=== PATIENT | female | born 1955 | race Caucasian/White ===

== ENCOUNTER 2023-08-08 13:10 | Emergency (ER) | payer BC, SELFPAY ==
[2023-08-08 13:14] VITALS: BP 113/73; PULSE 75; TEMP 36.4; O2SAT 95
--- NOTE | 2023-08-08 13:25 | ED_ITS ---
HPI - Nausea/Vomiting/Diarrhea General Chief complaint: Nausea/Vomiting/Diarrhea Stated complaint: NAUSEA/DIARRHEA Time Seen by Provider: 08/08/23 13:18 Source: patient Mode of arrival: walk-in History of Present Illness HPI Narrative: 68-year-old female presents for a 1 week history of nausea and diarrhea. She has had no travel or recent hospitalizations. She has not been around ill people. No blood in her diarrhea and she states it is watery. She has not been vomiting but she has been nauseous and her appetite has been poor. Related Data Home Medications ?Medication ?Instructions ?Recorded ?Confirmed baclofen 20 mg tablet 20 mg PO BID 08/08/23 08/08/23 clonazepam 0.5 mg tablet 0.5 mg PO QPM PRN anxiety 08/08/23 08/08/23 duloxetine 20 mg capsule,delayed 20 mg PO QPM 08/08/23 08/08/23 release ergocalciferol (vitamin D2) 1,250 1,250 mcg PO .[id number] a week 08/08/23 08/08/23 mcg (50,000 unit) capsule escitalopram oxalate 20 mg tablet 20 mg PO QAM 08/08/23 08/08/23 ferrous sulfate 325 mg (65 mg 325 mg PO QAM 08/08/23 08/08/23 iron) tablet (FeroSul) trazodone 100 mg tablet 150 mg PO QPM 08/08/23 08/08/23 Previous Rx's ?Medication ?Instructions ?Recorded cephalexin 500 mg capsule 500 mg PO TID 7 days #21 caps 08/08/23 Allergies Allergy/AdvReac Type Severity Reaction Status Date / Time No Known Drug Allergies Allergy Verified 08/08/23 13:18 Review of Systems ROS Narrative A ten point review of systems is negative except as noted above. Exam Narrative Exam Narrative: Nurses note and vital signs reviewed and patient is not hypoxic. General: The patient appears well and in no apparent distress. Patient is resting comfortably on cart. Skin: Warm, dry, no pallor noted. There is no rash noted. Head: Normocephalic, atraumatic Eye: Normal conjunctiva, no drainage Ears, Nose, Mouth, and Throat: oral mucosa is moist. Nares patent. Cardiovascular: Regular Rate and Rhythm Respiratory: Patient is in no distress, no accessory muscle use, lungs no CVA tenderness bilaterally to percussion. GI: Soft and nontender Musculoskeletal: The patient has no evidence of calf tenderness, no pitting edema, symmetrical pulses noted bilaterally Neurological: A&O, normal speech Psychiatric: Cooperative Constitutional Vital Signs, click to edit/add: Last Vital Signs Temp 97.5 F L 08/08/23 13:14 Pulse 75 08/08/23 13:14 Resp 16 08/08/23 13:14 BP 113/73 08/08/23 13:14 Pulse Ox 95 08/08/23 13:14 O2 Del Method Room Air 08/08/23 13:14 Course Vital Signs Vital signs: Vital Signs Temperature 97.5 F L 08/08/23 13:14 Pulse Rate 75 08/08/23 13:14 Respiratory Rate 16 08/08/23 13:14 Blood Pressure 113/73 08/08/23 13:14 Pulse Oximetry 95 08/08/23 13:14 Oxygen Delivery Method Room Air 08/08/23 13:14 Temperature 97.5 F L 08/08/23 13:14 Pulse Rate 75 08/08/23 13:14 Respiratory Rate 16 08/08/23 13:14 Blood Pressure 113/73 08/08/23 13:14 Pulse Oximetry 95 08/08/23 13:14 Oxygen Delivery Method Room Air 08/08/23 13:14 MDM - Nausea/Vomiting/Diarrhea MDM Narrative Medical decision making narrative: She was unable to provide a stool specimen for culture. Urine suggest UTI and a culture was ordered and she was prescribed Keflex. Blood work is nonspecific. Treatment diagnosis and follow-up were discussed with the patient. Differential Diagnosis Differential diagnosis: Likely traveler's diarrhea, food poisoning, gastroenteritis, dehydration and other (UTI) Lab Data Attestation: I reviewed the patient's lab results. Labs: Lab Results 08/08/23 08/08/23 Range/Units 13:25 13:35 WBC 6.5 (4.0-11.0) 10^3/uL RBC 4.34 (4.20-5.40) 10^6/uL Hgb 13.0 (12.0-16.0) g/dL Hct 41.3 (36.0-48.0) % MCV 95.2 (81.0-99.0) fL MCH 30.0 (26.7-34.0) pg MCHC 31.5 (29.9-35.2) g/dL RDW 12.8 (11.0-15.0) % Plt Count 292 (150-450) 10^3/uL MPV 9.1 L (9.5-13.5) fL Neut % (Auto) 76.0 H (43.0-75.0) % Lymph % (Auto) 15.6 L (20.5-60.0) % Sebastian % (Auto) 6.8 (1.7-12.0) % Eos % (Auto) 1.2 (0.9-7.0) % Baso % (Auto) 0.2 (0.2-2.0) % Neut # (Auto) 4.9 (1.4-6.5) 10^3/uL Lymph # (Auto) 1.0 L (1.2-3.8) 10^3/uL Sebastian # (Auto) 0.4 (0.3-0.8) 10^3/uL Eos # (Auto) 0.1 (0.0-0.7) 10^3/uL Baso # (Auto) 0.0 (0.0-0.1) 10^3/uL Abs Immat Gran (auto) 0.01 (0.00-0.03) 10^3/uL Imm/Tot Granulo (auto) 0.2 (0.0-0.5) % Sodium 139 (136-145) mmol/L Potassium 3.7 (3.5-5.1) mmol/L Chloride 104 (98-107) mmol/L Carbon Dioxide 26.5 (21.0-32.0) mmol/L Anion Gap 12.2 BUN 10.0 (7.0-18.0) mg/dL Creatinine 0.65 (0.55-1.02) mg/dL Est GFR ( Amer) >60 (>=60) Est GFR (Non-Af Amer) >60 (>=60) BUN/Creatinine Ratio 15.4 Glucose 84 (74-106) mg/dL Calcium 9.1 (8.5-10.1) mg/dL Urine Color Lt. yellow (YELLOW) Urine Clarity Clear (CLEAR) Urine pH 5.5 (5.0-9.0) Ur Specific [place] 1.025 (1.005-1.025) Urine Protein Negative (NEG/TRACE) mg/dL Urine Glucose (UA) Negative (NEGATIVE) mg/dL Urine Ketones 40 A (NEGATIVE) mg/dL Urine Occult Blood Negative (NEGATIVE) Urine Nitrite Positive A (NEGATIVE) Urine Bilirubin Negative (NEGATIVE) Urine Urobilinogen 0.2 (0.2-1.0) EU/dL Ur Leukocyte Esterase Small A (NEGATIVE) Urine RBC None seen (0-2) #/HPF Urine WBC 10-20 A (NONE SEEN) #/HPF Ur Squamous Epith Cells Moderate A (NONE/RARE) #/LPF Urine Crystals None seen (None Seen) #/HPF Urine Bacteria Moderate A (NONE SEEN) #/HPF Urine Casts None seen (NONE SEEN) #/LPF Urine Mucus None seen (NONE SEEN) Discharge Plan Discharge Stand Alone Forms: Portal Instructions Chief Complaint: Nausea/Vomiting/Diarrhea Clinical Impression: Urinary tract infection, Diarrhea Patient Disposition: Home, Self-Care Time of Disposition Decision: 15:06 Condition: Good Mode of Transportation: Private Vehicle Prescriptions / Home Meds: New cephalexin 500 mg capsule 500 mg PO TID 7 Days Qty: 21 0RF No Action baclofen 20 mg tablet 20 mg PO BID clonazepam 0.5 mg tablet 0.5 mg PO QPM PRN (Reason: anxiety) duloxetine 20 mg capsule,delayed release(DR/EC) 20 mg PO QPM ergocalciferol (vitamin D2) 1,250 mcg (50,000 unit) capsule 1,250 mcg PO .[id number] a week Patient Comments: Mon and escitalopram oxalate 20 mg tablet 20 mg PO QAM ferrous sulfate [FeroSul] 325 mg (65 mg iron) tablet 325 mg PO QAM trazodone 100 mg tablet 150 mg PO QPM Print Language: Georgian Instructions: Urinary Tract Infection in Women (ED), Acute Diarrhea (ED) Referrals: BERTIN NAPIER MD [Primary Care Provider] - 1 week
[2023-08-08] MEDS: 0.9 % SODIUM CHLORIDE 1,000 ML 1000 ML IV (13:38)
[2023-08-08] MEDS: ONDANSETRON PF 4 MG/2 ML VIAL IV (13:38)
[2023-08-08 13:39] LABS: Basophils Percent Auto 0.2 % (0.2-2.0); Eosinophils Absolute Auto 0.1 10^3/uL (0.0-0.7); Eosinophils Percent Auto 1.2 % (0.9-7.0); Hematocrit 41.3 % (36.0-48.0); Immature Granulocytes Abs Auto 0.01 10^3/uL (0.00-0.03); Immature Granulocytes Pct Auto 0.2 % (0.0-0.5); Lymphocytes Percent Auto 15.6 % (20.5-60.0); Mean Corpuscular HGB Conc 31.5 g/dL (29.9-35.2); Mean Corpuscular Volume 95.2 fL (81.0-99.0); Mean Platelet Volume 9.1 fL (9.5-13.5); Monocytes Absolute Auto 0.4 10^3/uL (0.3-0.8); Monocytes Percent Auto 6.8 % (1.7-12.0); Neutrophils Absolute Auto 4.9 10^3/uL (1.4-6.5); Platelet Count 292 10^3/uL (150-450); Red Blood Count 4.34 10^6/uL (4.20-5.40); Red Cell Distribution Width 12.8 % (11.0-15.0); White Blood Count 6.5 10^3/uL (4.0-11.0)
[2023-08-08 13:40] LABS: Bilirubin Urine NEGATIVE (NEGATIVE); Blood Urine NEGATIVE (NEGATIVE); Clarity Urine CLEAR (CLEAR); Color Urine LT. YELLOW (YELLOW); Glucose Urine UA NEGATIVE (NEGATIVE); Ketones Urine 40 mg/dL (NEGATIVE); Leukocyte Esterase Urine SMALL (NEGATIVE); Nitrite Urine POSITIVE (NEGATIVE); Protein Urine NEGATIVE (NEG/TRACE); Specific Gravity Urine 1.025 (1.005-1.025); Urobilinogen Urine 0.2 EU/dL (0.2-1.0); pH Urine 5.5 (5.0-9.0)
[2023-08-08 13:46] LABS: Bacteria Urine MODERATE #/HPF (NONE SEEN); Cast Seen? NONE SEEN #/LPF (NONE SEEN); Crystals Seen? None Seen #/HPF (None Seen); Mucus Urine NONE SEEN (NONE SEEN); RBC Urine NONE SEEN #/HPF (0-2); Squamous Epithelial Cell Urine MODERATE #/LPF (NONE/RARE)
[2023-08-08 13:49] LABS: Anion Gap 12.2; BUN Creatinine Ratio 15.4; Calcium 9.1 mg/dL (8.5-10.1); Carbon Dioxide 26.5 mmol/L (21.0-32.0); Chloride 104 mmol/L (98-107); Estimated GFR (African America >60 (>=60); Estimated GFR (Non-African Ame >60 (>=60); Glucose 84 mg/dL (74-106); Potassium 3.7 mmol/L (3.5-5.1); Sodium 139 mmol/L (136-145)
== END 2023-08-08 15:18 | disposition home or self-care (01) ==
PROVIDERS: Emergency Provider Emergency Medicine; PCP Internal Medicine
DX: N39.0 Urinary tract infection, site not specified (principal); R19.7 Diarrhea, unspecified; Z79.899 Other long term (current) drug therapy
CPT/HCPCS: 36415; 80048; 81001; 85025; 87045; 87086; 87150; 87186; 96361; 96374; 99285